=== PATIENT | male | born 1980 | race African-American/Black ===

== ENCOUNTER 2019-02-21 11:43 | Inpatient (IN) | payer OTHER ==
[2019-02-21 12:32] VITALS: BMI 30.1
--- NOTE | 2019-02-21 14:12 | HP ---
CIWA Score Nausea/Vomitin-Int. Nausea w/Dry Heave Muscle Tremors: 4-Moderate,w/Arms Extend Anxiety: 4-Mod. Anxious/Guarded Agitation: 1-Slight > Activity Paroxysmal Sweats: 1-Minimal Palms Moist Orientation: 1-Uncertain about Date Tacttile Disturbances: 0-None Auditory Disturbances: 0-None Visual Disturbances: 1-Very Mild Sensitivity Headache: 1-Very Mild CIWA-Ar Total Score: 17 - Admission Criteria [facility]ASAS Guidelines: Admission for Medically Managed Detox: Requires at least one of the followin. CIWA greater than 12 2. Seizures within the past 24 hours 3. Delirium tremens within the past 24 hours 4. Hallucinations within the past 24 hours 5. Acute intervention needed for co occurring medical disorder 6. Acute intervention needed for co occurring psychiatric disorder 7. Severe withdrawal that cannot be handled at a lower level of care (continued vomiting, continued diarrhea, abnormal vital signs) requiring intravenous medication and/or fluids 8. Patient presents the following: CIWA greater than 12 Admission Criteria Met: Admission criteria met Admission ROS [facility] - [facility] Chief Complaint: I want to stop drinking - this helps me get there Allergies/Adverse Reactions: Allergies Allergy/AdvReac Type Severity Reaction Status Date / Time No Known Allergies Allergy Verified 02/21/19 12:27 History of Present Illness: 38 yo gentleman here for alcohol detox. First time in detox here but previously in detox at [facility] about 5 years ago - states he was sober for 18 months but relapsed. He works and lives in an apartment. No seizures or black outs. Drinks most of the day - free beer in his office. States he has been unable to stop as every time he tries he just feels sick and drinks. Exam Limitations: No Limitations - Ebola screening Have you traveled outside of the country in the last 21 days: No (N) Have you had contact with anyone from an Ebola affected area: No Do you have a fever: No - Review of Systems Constitutional: Loss of Appetite, Malaise, Changes in sleep EENT: reports: Blurred Vision, Nose Congestion Respiratory: reports: No Symptoms reported Cardiac: reports: Chest Tightness GI: reports: Nausea, Poor Appetite, Indigestion, Abdominal cramping : reports: Frequency Musculoskeletal: reports: No Symptoms Reported Integumentary: reports: No Symptoms Reported Neuro: reports: Tremors Endocrine: reports: No Symptoms Reported Hematology: reports: No Symptoms Reported Psychiatric: reports: Judgement Intact, Mood/Affect Appropiate, Anxious Other Systems: Reviewed and Negative Patient History - Patient Medical History Hx Anemia: No Hx Asthma: No Hx Chronic Obstructive Pulmonary Disease (COPD): No Hx Cancer: No Hx Cardiac Disorders: No Hx Congestive Heart Failure: No Hx Hypertension: Yes (no meds - only due to drinking) Hx Hypercholesterolemia: No HX Cerebrovascular Accident: No Hx Seizures: No Hx Diabetes: No Hx Gastrointestinal Disorders: Yes (GERD) Hx Liver Disease: No Hx Genitourinary Disorders: No Hx Sexually Transmitted Disorders: No Hx Renal Disease (ESRD): No Hx Thyroid Disease: No Hx Human Immunodeficiency Virus (HIV): No Hx Hepatitis C: No Hx Depression: Yes (due to drinking) Hx Suicide Attempt: No (denies) Hx Bipolar Disorder: No Hx Schizophrenia: No - Patient Surgical History Past Surgical History: No - PPD History Previous Implant?: No Implanted On Prior [facility] Admission?: No PPD to be Administered?: Yes - Reproductive History Patient is a Female of Child Bearing Age (11 -55 yrs old): No - Smoking Cessation Smoking history: Current every day smoker Have you smoked in the past 12 months: Yes Aproximately how many cigarettes per day: 20 Initiated information on smoking cessation: Yes 'Breaking Loose' booklet given: 02/21/19 (give on floor) - Substance & Tx. History Hx Alcohol Use: Yes Hx Substance Use: No Substance Use Type: Alcohol Hx Substance Use Treatment: Yes (detox) - Substances abused Alcohol Substance route: Oral Frequency: Daily Amount used: 1/2 - 1 pint of Tequila,4 (12oz) beers Age of first use: 18 Date of last use: 02/21/19 Cocaine Substance route: Inhalation Frequency: 1-3 times last 30 days Amount used: $20 Age of first use: 25 Date of last use: 02/20/19 Admission Physical Exam [facility] - Vital Signs Vital Signs: Vital Signs - 24 hr 02/21/19 12:28 Temperature 97.2 F L Pulse Rate 101 H Respiratory 14 Rate Blood Pressure 153/96 - Physical General Appearance: Yes: Nourished, Appropriately Dressed, Moderate Distress, Tremorous, Anxious HEENTM: Yes: EOMI, Hearing grossly Normal, Normocephalic, Normal Voice, Pharynx Normal Respiratory: Yes: No Respiratory Distress, Rhonchi Neck: Yes: No masses,lesions,Nodules, Supple Breast: Yes: Breast Exam Deferred Cardiology: Yes: Regular Rhythm, Regular Rate Abdominal: Yes: Soft Genitourinary: Yes: Frequency Back: Yes: Normal Inspection Musculoskeletal: Yes: full range of Motion, Gait Steady Extremities: Yes: Normal Inspection, Normal Range of Motion, Non-Tender, Tremors Neurological: Yes: Fully Oriented, Alert, Normal Mood/Affect, Normal Response, Numbness Integumentary: Yes: Normal Color, Dry, Warm Lymphatic: Yes: Within Normal Limits - Diagnostic (1) Alcohol dependence with uncomplicated withdrawal Current Visit: Yes Status: Chronic (2) Cocaine abuse Current Visit: Yes Status: Chronic (3) Nicotine dependence Current Visit: Yes Status: Chronic Qualifiers: Nicotine product type: cigarettes Substance use status: uncomplicated Qualified Code(s): F17.210 - Nicotine dependence, cigarettes, uncomplicated (4) GERD (gastroesophageal reflux disease) Current Visit: Yes Status: Chronic Qualifiers: Esophagitis presence: esophagitis presence not specified Qualified Code(s) : K21.9 - Gastro-esophageal reflux disease without esophagitis Cleared for Admission S - Detox or Rehab [facility] Level of Care: Medically Managed Detox Regimen/Protocol: Librium Breathalyzer - Breathalyzer Breathalyzer: 0.188 Urine Drug Screen - Test Device Lot number: [id number] Expiration date: 10/31/20 - Control Is test valid?: Yes - Results Drug screen NEGATIVE: No Urine drug screen results: TAISHA-Cocaine Inpatient Rehab Admission - Rehab Decision to Admit Inpatient rehab admission?: No
[2019-02-21] MEDS ORDERED: METHOCARBAMOL 500 MG TABLET PO PRN (14:21)
[2019-02-21] MEDS ORDERED: IBUPROFEN 400 MG TABLET (FP) PO PRN (14:21)
[2019-02-21] MEDS ORDERED: ACETAMINOPHEN 325 MG TABLET (FP) PO PRN ×2 (14:21)
[2019-02-21] MEDS ORDERED: MENTHOL/PHENOL 1 EACH UD MM PRN (14:21)
[2019-02-21] MEDS ORDERED: MAG HYDROX/AL HYDROX/SIMETH 30 ML UNIT-DOSE CUP PO PRN (14:21)
[2019-02-21] MEDS ORDERED: chlordiazePOXIDE HCL 25 MG CAPSULE PO PRN (14:21)
[2019-02-21] MEDS ORDERED: BISMUTH SUBSALICYLATE 524 MG/30 ML UD PO PRN (14:21)
[2019-02-21] MEDS ORDERED: MAGNESIUM CITRATE 300 ML BOTTLE PO PRN (14:21)
[2019-02-21] MEDS ORDERED: hydrOXYzine PAMOATE 25 MG CAPSULE (FP) PO PRN (14:21)
[2019-02-21] MEDS ORDERED: chlordiazePOXIDE HCL 25 MG CAPSULE PO ONE (14:21)
[2019-02-21] MEDS ORDERED: MAGNESIUM HYDROX 2400MG/30ML ORAL SUSPENSION 30 ML CUP PO PRN (14:21)
[2019-02-21] MEDS: NICOTINE 21 MG/24 HOURS TOPICAL PATCH TD SCH (15:51)
[2019-02-21] MEDS: chlordiazePOXIDE HCL 25 MG CAPSULE PO SCH ×2 (17:35→22:13)
[2019-02-21] MEDS ORDERED: cloNIDine HCL 0.1 MG TABLET PO ONE (18:55)
[2019-02-21] MEDS: THIAMINE HCL 100 MG TABLET (FP) PO SCH (22:13)
[2019-02-21] MEDS: MELATONIN 5 MG TABLETS PO PRN (22:14)
[2019-02-22] MEDS: chlordiazePOXIDE HCL 25 MG CAPSULE PO SCH ×4 (05:47→22:20)
--- NOTE | 2019-02-22 07:00 | PN ---
[facility] Progress Note Note: ASKED TO SEE CLIENT FOR ELEVATED B/P AND NOSE BLEED. CLIENT REPORTS HE HAS BEEN BLEEDING FROM HIS NOSE FOR THE PAST 1 HOURS. DENIES SOB, DIZZINESS, C.P., VISUAL DISTURBANCES. CLIENT SEEN LYING IN BED SUPINE POSITION. HOLD TOWEL OVER HIS NOSE WITH BRIGHT RED BLOOD AND CLOTTS ON THE TOWEL, BED, FLOOR AND FEW [place] IN GARBAGE SOAKED WITH BRIGHT RED BLOOD AND CLOTTS. A/O X3 TALKING AND SWALLOWING FREQUENTLY. CLIENT WAS ASKED TO SIT UP AND HOLD PRESSURE OVER NOSE AND HOLD HEAD DOWN. ICE PACK ALSO GIVEN. Vital Signs (72 hours) 02/21/19 02/21/19 02/21/19 12:28 17:48 21:28 Temperature 97.2 F L 97.0 F L 98.5 F Pulse Rate 101 H 106 H 107 H Respiratory 14 16 16 Rate Blood Pressure 153/96 148/99 152/92 02/21/19 02/21/19 02/22/19 21:29 23:53 00:24 Temperature 98.5 F Pulse Rate 102 H 92 H Respiratory 16 18 Rate Blood Pressure 154/96 141/90 02/22/19 02/22/19 02/22/19 03:30 06:19 06:20 Temperature 98.5 F 98.5 F Pulse Rate 105 H 96 H Respiratory 18 18 18 Rate Blood Pressure 178/130 H 163/108 H 02/22/19 02/22/19 06:59 07:08 Temperature 102.6 F H 98.6 F Pulse Rate 101 H Respiratory 18 Rate Blood Pressure 171/122 H A- EPISTAXIS AND ELEVATED B/P P- TRANSFER CLIENT TO [facility] FOR EVAL . EKG ON ADMISSION SINUS TACH 102 NONSPECIFIC T WAVE ABN ABN ECG QT/QTC 368/[address] OUT [address] ELENITA CRAVEN
[2019-02-22 09:14] LABS: HEMATOCRIT 34.6 % (35.4-49); HEMOGLOBIN 11.4 GM/dL (11.7-16.9); MCH 29.2 pg (25.7-33.7); MEAN CELL VOLUME 88.6 fl (80-96); MEAN PLT VOLUME 7.3 fl (7.5-11.1); PLATELET COUNT 256 K/MM3 (134-434); RBC 3.91 M/mm3 (4.00-5.60); RDW 16.1 % (11.9-15.9); WHITE BLOOD COUNT 4.3 K/mm3 (4.0-10.0)
[2019-02-22 09:23] LABS: ALBUMIN 3.6 g/dl (3.4-5.0); BILIRUBIN,TOTAL 0.7 mg/dL (0.2-1); BLOOD UREA NITROGEN 10.2 mg/dL (7-18); POTASSIUM 3.8 mmol/L (3.5-5.1); TOT PROT 6.8 g/dl (6.4-8.2)
[2019-02-22] MEDS: PRENATAL VITAMINS W/ FOLIC ACID TABLET (FP) PO SCH (16:12)
[2019-02-22] MEDS: NICOTINE 21 MG/24 HOURS TOPICAL PATCH TD SCH (16:12)
[2019-02-22] MEDS: THIAMINE HCL 100 MG TABLET (FP) PO SCH (22:20)
[2019-02-22] MEDS: MELATONIN 5 MG TABLETS PO PRN (22:20)
[2019-02-23] MEDS: chlordiazePOXIDE HCL 25 MG CAPSULE PO SCH ×4 (05:27→22:01)
--- NOTE | 2019-02-23 07:12 | EKG ---
Test Reason : Blood Pressure : / mmHG Vent. Rate : 102 BPM Atrial Rate : 102 BPM P-R Int : 152 ms QRS Dur : 104 ms QT Int : 368 ms P-R-T Axes : 057 036 054 degrees QTc Int : 479 ms SINUS TACHYCARDIA NONSPECIFIC T WAVE ABNORMALITY ABNORMAL ECG NO PREVIOUS ECGS AVAILABLE Confirmed by JORDAN OATES MD ([id number]) on 02/23/2019 7:11:54 AM Referred By: Confirmed By:JORDAN OATES MD
[2019-02-23] MEDS: PRENATAL VITAMINS W/ FOLIC ACID TABLET (FP) PO SCH (10:41)
[2019-02-23] MEDS: NICOTINE 21 MG/24 HOURS TOPICAL PATCH TD SCH (10:42)
--- NOTE | 2019-02-23 14:08 | PN ---
[facility] CIWA - CIWA Score Nausea/Vomitin-Mild Nausea/No Vomiting Muscle Tremors: 2 Anxiety: 2 Agitation: 2 Paroxysmal Sweats: No Perspiration Orientation: 0-Oriented Tacttile Disturbances: 1-Very Mild Itch/Numbness Auditory Disturbances: 0-None Visual Disturbances: 0-None Headache: 1-Very Mild CIWA-Ar Total Score: 9 S Progress Note (SOAP) Subjective: ALERT,IRRITABLE,ANXIOUS,INTERRUPTED SLEEP,PAIN IN THE BODY Objective: 02/23/19 14:07 Vital Signs Temperature 97.1 F L 02/23/19 13:19 Pulse Rate 115 H 02/23/19 13:19 Respiratory Rate 18 02/23/19 13:19 Blood Pressure 138/99 02/23/19 13:19 O2 Sat by Pulse Oximetry (%) Laboratory Last Values WBC 4.3 K/mm3 (4.0-10.0) 02/22/19 07:40 RBC 3.91 M/mm3 (4.00-5.60) L 02/22/19 07:40 Hgb 11.4 GM/dL (11.7-16.9) L 02/22/19 07:40 Hct 34.6 % (35.4-49) L 02/22/19 07:40 MCV 88.6 fl (80-96) 02/22/19 07:40 MCH 29.2 pg (25.7-33.7) 02/22/19 07:40 MCHC 33.0 g/dl (32.0-35.9) 02/22/19 07:40 RDW 16.1 % (11.9-15.9) H 02/22/19 07:40 Plt Count 256 K/MM3 (134-434) 02/22/19 07:40 MPV 7.3 fl (7.5-11.1) L 02/22/19 07:40 Sodium 137 mmol/L (136-145) 02/22/19 07:40 Potassium 3.8 mmol/L (3.5-5.1) 02/22/19 07:40 Chloride 99 mmol/L (98-107) 02/22/19 07:40 Carbon Dioxide 28 mmol/L (21-32) 02/22/19 07:40 Anion Gap 10 MMOL/L (8-16) 02/22/19 07:40 BUN 10.2 mg/dL (7-18) 02/22/19 07:40 Creatinine 1.0 mg/dL (0.55-1.3) 02/22/19 07:40 Est GFR (CKD-EPI)AfAm 111.73 02/22/19 07:40 Est GFR (CKD-EPI)NonAf 96.40 02/22/19 07:40 Random Glucose 77 mg/dL (74-106) 02/22/19 07:40 Calcium 9.0 mg/dL (8.5-10.1) 02/22/19 07:40 Total Bilirubin 0.7 mg/dL (0.2-1) 02/22/19 07:40 AST 78 U/L (15-37) H 02/22/19 07:40 ALT 86 U/L (13-61) H 02/22/19 07:40 Alkaline Phosphatase 78 U/L (45-117) 02/22/19 07:40 Total Protein 6.8 g/dl (6.4-8.2) 02/22/19 07:40 Albumin 3.6 g/dl (3.4-5.0) 02/22/19 07:40 RPR Titer Nonreactive (NONREACTIVE) 02/22/19 07:40 Assessment: 02/23/19 14:08 WITHDRAWAL SYMPTOM Plan: CONTINUE DETOX [facility]UM [facility]IMEN
[2019-02-23] MEDS: THIAMINE HCL 100 MG TABLET (FP) PO SCH (22:01)
[2019-02-23] MEDS: MELATONIN 5 MG TABLETS PO PRN (22:01)
[2019-02-24] MEDS ORDERED: chlordiazePOXIDE HCL 10 MG CAPSULE PO PRN
[2019-02-24] MEDS: chlordiazePOXIDE HCL 10 MG CAPSULE PO SCH ×2 (05:13→10:20)
[2019-02-24] MEDS: NICOTINE 21 MG/24 HOURS TOPICAL PATCH TD SCH (10:20)
[2019-02-24] MEDS: PRENATAL VITAMINS W/ FOLIC ACID TABLET (FP) PO SCH (10:21)
[2019-02-24 13:17] VITALS: BP 124/83; PULSE 95; TEMP 97
--- NOTE | 2019-02-24 14:10 | PN ---
S CIWA - CIWA Score Nausea/Vomitin-No Nausea/No Vomiting Muscle Tremors: None Anxiety: 1-Mildly Anxious Agitation: 0-Normal Activity Paroxysmal Sweats: 1-Minimal Palms Moist Orientation: 0-Oriented Tacttile Disturbances: 1-Very Mild Itch/Numbness Auditory Disturbances: 0-None Visual Disturbances: 0-None Headache: 0-None Present CIWA-Ar Total Score: 3
--- NOTE | 2019-02-24 14:11 | DS ---
[facility] Detox Discharge Summary Admission Date: 02/21/19 Discharge Date: 02/24/19 - History Present History: Alcohol Dependence, Cocaine Dependence Additional Comments: PATIENT REPORTS THAT CURRENT WITHDRAWAL / DETOX SYMPTOMS ARE MINIMAL IN DEGREE AND THAT HE FEELS WELL OVERALL. AT PATIENTS REQUEST, HE WAS GRANTED AN EARLY DISCHARGE FROM DETOX UNIT TODAY SO THAT HE MAY RETURN TO WORK. PATIENT ADVISED TO FOLLOW-UP WITH PER DIEM CLERK AFTER DISCHARGE FROM DETOX FOR GENERAL MEDICAL ASSESSMENT AND FOR INTERMITTENT ELEVATED BLOOD PRESSURE READINGS NOTED WHILE ADMITTED FOR DETOX (PATIENT REPORTS HISTORY OF HYPERTENSION; HOWEVER, HE DENIES HISTORY OF PRESCRIBED MEDICATION TO TREAT HYPERTENSION). PATIENT ALSO ADVISED TO CONSIDER LOCAL 12-STEP / NA / AA OUTPATIENT SUPPORT GROUP PROGRAMS FOR AFTERCARE. PATIENT VERBALIZED UNDERSTANDING OF ALL RECOMMENDATIONS PRESENTED TO HIM PRIOR TO DISCHARGE FROM DETOX UNIT. PATIENT LEFT DETOX UNIT IN STABLE MEDICAL CONDITION. Pertinent Past History: HTN, G.E.R.D., Nosebleed, Anemia, Elevated ALT Level, Elevated AST Level, Depression, Nicotine Dependence. - Physical Exam Results Vital Signs: Vital Signs Temperature 97 F L 02/24/19 13:17 Pulse Rate 95 H 02/24/19 13:17 Respiratory Rate 18 02/24/19 13:17 Blood Pressure 124/83 02/24/19 13:17 O2 Sat by Pulse Oximetry (%) Pertinent Admission Physical Exam Findings: WITHDRAWAL SYMPTOMS. Laboratory Tests 02/22/19 02/22/19 02/22/19 07:40 07:40 07:40 WBC 4.3 RBC 3.91 L Hgb 11.4 L Hct 34.6 L MCV 88.6 MCH 29.2 MCHC 33.0 RDW 16.1 H Plt Count 256 MPV 7.3 L Sodium 137 Potassium 3.8 Chloride 99 Carbon Dioxide 28 Anion Gap 10 BUN 10.2 Creatinine 1.0 Est GFR (CKD-EPI)AfAm 111.73 Est GFR (CKD-EPI)NonAf 96.40 Random Glucose 77 Calcium 9.0 Total Bilirubin 0.7 AST 78 H ALT 86 H Alkaline Phosphatase 78 Total Protein 6.8 Albumin 3.6 RPR Titer Nonreactive LABS NOTED. - Treatment Patient has Accepted a Rehab Referral to: PT. ADVISED TO CONSIDER LOCAL 12-STEP/ NA/AA OUTPATIENT SUPPORT GROUP. - Medication Discharge Medications: Ambulatory Orders NK [No Known Home Medication] 02/21/19 - Diagnosis (1) Alcohol dependence with uncomplicated withdrawal Current Visit: Yes Status: Acute (2) Cocaine abuse Current Visit: Yes Status: Chronic (3) GERD (gastroesophageal reflux disease) Current Visit: Yes Status: Chronic Qualifiers: Esophagitis presence: esophagitis presence not specified Qualified Code(s) : K21.9 - Gastro-esophageal reflux disease without esophagitis (4) Nicotine dependence Current Visit: Yes Status: Chronic Qualifiers: Nicotine product type: cigarettes Substance use status: uncomplicated Qualified Code(s): F17.210 - Nicotine dependence, cigarettes, uncomplicated (5) Nosebleed Current Visit: Yes Status: Acute - AMA Did Patient Leave Against Medical Advice: No [facility] CIWA - CIWA Score Nausea/Vomitin-No Nausea/No Vomiting Muscle Tremors: None Anxiety: 1-Mildly Anxious Agitation: 1-Slight > Activity Paroxysmal Sweats: 2 Orientation: 0-Oriented Tacttile Disturbances: 1-Very Mild Itch/Numbness Auditory Disturbances: 0-None Visual Disturbances: 0-None Headache: 0-None Present CIWA-Ar Total Score: 5
[2019-02-25] MEDS ORDERED: chlordiazePOXIDE HCL 10 MG CAPSULE PO SCH (05:00)
[2019-02-26] MEDS ORDERED: chlordiazePOXIDE HCL 10 MG CAPSULE PO ONE (05:00)
== END 2019-02-24 14:06 | disposition home or self-care (01) | DRG 897 ==
LOC: YASAS 11:43 → EDBD 11:43 → Y3N 15:18
PROVIDERS: ADMIT Surgery; ATTEND Surgery
PROC: HZ2ZZZZ Detoxification Services for Substance Abuse Treatment (ICD-10-PCS; principal; 2019-02-21)
DX: F10.230 Alcohol dependence with withdrawal, uncomplicated (principal); F14.10 Cocaine abuse, uncomplicated; F17.210 Nicotine dependence, cigarettes, uncomplicated; K21.9 Gastro-esophageal reflux disease without esophagitis; R03.0 Elevated blood-pressure reading, without diagnosis of hypertension; R00.1 Bradycardia, unspecified; R94.31 Abnormal electrocardiogram [ECG] [EKG]; R04.0 Epistaxis
CPT/HCPCS: 36415; 80053; 85027; 86593; 93005; 93010; J0735

== ENCOUNTER 2019-02-22 07:52 | Emergency (ER) | payer OTHER ==
[2019-02-22 07:58] VITALS: BMI 29.8
--- NOTE | 2019-02-22 09:16 | PDOC ---
History of Present Illness - General Chief Complaint: Nasal Bleeding Stated Complaint: NOSEBLEED Time Seen by Provider: 02/22/19 08:30 Past History - Past Medical History Allergies/Adverse Reactions: Allergies Allergy/AdvReac Type Severity Reaction Status Date / Time No Known Allergies Allergy Verified 02/22/19 08:15 Home Medications: Ambulatory Orders NK [No Known Home Medication] 02/21/19 Anemia: No Asthma: No Cancer: No Cardiac Disorders: No CVA: No COPD: No CHF: No Diabetes: No GI Disorders: No Disorders: No HTN: No Hypercholesterolemia: No Kidney Stones: No Liver Disease: No Seizures: No Thyroid Disease: No - Reproductive History Testicular Surgery: No - Suicide/Smoking/Psychosocial Hx Smoking History: Current every day smoker Have you smoked in the past 12 months: Yes Number of Cigarettes Smoked Daily: 15 Information on smoking cessation initiated: No 'Breaking Loose' booklet given: 02/21/19 (give on floor) Hx Alcohol Use: Yes Drug/Substance Use Hx: Yes Substance Use Type: Alcohol Hx Substance Use Treatment: Yes (detox) Review of Systems - Review of Systems Able to Perform ROS?: Yes Comments:: 02/22/19 10:37 ROS: GENERAL/CONSTITUTIONAL: No fever or chills. No weakness. HEAD, EYES, EARS, NOSE AND THROAT: Nosebleed. No change in vision. No ear pain or discharge. No sore throat. CARDIOVASCULAR: No chest pain or shortness of breath RESPIRATORY: No cough, wheezing, or hemoptysis. GASTROINTESTINAL: No nausea, vomiting, diarrhea or constipation. GENITOURINARY: No dysuria, frequency, or change in urination. MUSCULOSKELETAL: No joint or muscle swelling or pain. No neck or back pain. SKIN: No rash NEUROLOGIC: No headache, vertigo, loss of consciousness, or change in strength/ sensation. ENDOCRINE: No increased thirst. No abnormal weight change HEMATOLOGIC/LYMPHATIC: No anemia, easy bleeding, or history of blood clots. ALLERGIC/IMMUNOLOGIC: No hives or skin allergy. *Physical Exam - Vital Signs Last Vital Signs Temp Pulse Resp BP Pulse Ox 99.6 F 104 H 18 154/109 H 02/22/19 07:54 02/22/19 07:54 02/22/19 07:54 02/22/19 08:15 - Physical Exam Comments: 02/22/19 10:38 PE: GENERAL: Awake, alert, and fully oriented, in no acute distress, holding gauze against the R nostril HEAD: No signs of trauma, normocephalic, atraumatic EYES: PERRLA, EOMI, sclera anicteric, conjunctiva clear ENT: Blood dripping from R nare. Auricles normal inspection, hearing grossly normal, nares patent, oropharynx clear without exudates, dried blood in back of throat. Moist mucosa NECK: Normal ROM, supple, no lymphadenopathy, JVD, or masses LUNGS: No distress, speaks full sentences, clear to auscultation bilaterally HEART: Regular rate and rhythm, normal S1 and S2, no murmurs, rubs or gallops, peripheral pulses normal and equal bilaterally. ABDOMEN: Soft, nontender, normoactive bowel sounds. No guarding, no rebound. No masses EXTREMITIES : Normal inspection, Normal range of motion, no edema. No clubbing or cyanosis NEUROLOGICAL: Cranial nerves II through XII grossly intact. Normal speech, normal gait, no focal sensorimotor deficits SKIN: Warm, Dry, normal turgor, no rashes or lesions noted ED Treatment Course - LABORATORY CBC & Chemistry Diagram: 02/22/19 18:05 02/22/19 18:05 Medical Decision Making - Medical Decision Making 02/22/19 10:15 38M p/w 2.5 hours ongoing nosebleed after first nosebleed one week ago, likely anterior nosebleed. Nosebleed stopped spontaneously before eval. Plan for observation for 1 hour then discharge back to [facility], where he is admitted for EtOH detox. Plan: Observation for 1 hour Dispo: Likely discharge 02/22/19 10:34 Repeat HR - 89 Repeat BP - 142/109 --- While preparing for discharge, Mr. Hardwick's nare began to bleed briskly again. Plan for TXA packing for 10 min, re-assess. --- On 02/22/19 16:26 Repeat HR - 94, plan for discharge back to [facility]. 02/22/19 19:08 Repeat HR - 102, BP - 140/100 *DC/Admit/Observation/Transfer Diagnosis at time of Disposition: Nosebleed - Discharge Dispostion Disposition: HOME Condition at time of disposition: Stable Decision to Admit order: No - Referrals Referrals: Gustavo Boles MD [Staff Physician] - - Patient Instructions Printed Discharge Instructions: DI for Nosebleed Additional Instructions: You were seen in the Emergency Department after a nosebleed. The nosebleed stopped with pressure in the nose, and with a spray to help stop the bleeding. The bleeding continued, and we placed a device in the nose to stop the bleeding , called the nasal rocket. The nasal rocket should stay in place for the next 24 -72 hours. It is important that you follow up with an Ears, Nose, and Throat doctor within the next three days. We observed you in the emergency department to make sure that the bleed did not start again. Please follow up with your primary care doctor as soon as possible, in the next seven days. Please return to the emergency department if you develop lightheadedness, weakness, headache, confusion, weakness. - Post Discharge Activity
[2019-02-22] MEDS ORDERED: OXYMETAZOLINE 0.05% NASAL SOLUTION 15 ML BOTTLE NS ONE (09:31)
--- NOTE | 2019-02-22 10:04 | PDOC ---
Attending Attestation - Resident Resident Name: Gurpreet Tavares - ED Attending Attestation I have performed the following: I have examined & evaluated the patient, The case was reviewed & discussed with the resident, I agree w/resident's findings & plan, Exceptions are as noted - HPI HPI: 02/22/19 10:07 38 M with no PMH presents to ED with epistaxis x 1 week. Pt reports intermittent nosebleeds. Denies any trauma to his nose. Denies picking his nose. Pt states it usually resolves spontaneously, but today it has been persistent. Pt denies any lightheadedness/dizziness. Denies CP/SOB. Pt is currently admitted to [facility] for ETOH detox. Denies any cocaine or snorting any other drugs. - Physicial Exam PE: 02/22/19 10:10 "GENERAL: Awake, alert, and fully oriented, in no acute distress. HEAD: No signs of trauma EYES: PERRLA, EOMI, sclera anicteric, conjunctiva clear ENT: Auricles normal inspection, hearing grossly normal, nares patent, oropharynx clear without exudates. Moist mucosa NECK: Nontender, no stepoffs, Normal ROM, supple, no lymphadenopathy, JVD, or masses LUNGS: Breath sounds equal, clear to auscultation bilaterally. No wheezes, and no crackles HEART: Regular rate and rhythm, normal S1 and S2, no murmurs, rubs or gallops ABDOMEN: Soft, nontender, normoactive bowel sounds. No guarding, no rebound. No masses EXTREMITIES: Normal range of motion, no edema. No clubbing or cyanosis. No cords, erythema, or tenderness NEUROLOGICAL: Cranial nerves II through XII intact. 5/5 strength and sensation in all extremities, Normal speech, normal gait, normal cerebellar function SKIN: Warm, Dry, normal turgor, no rashes or lesions noted. - Medical Decision Making 02/22/19 10:10 38 M with intermittent epistaxis, now resolved. Pt mildly tachycardic in ED. - Afrin nasal spray - PO hydration 02/22/19 13:02 Pt with recurrent epistaxis in ED, bleeding from R nare Afrin spray administered with persistent bleeding TXA-soaked gauze inserted into R nare, removed after 10 min with persistent bleeding Will insert rhino rocket 09/22/19 13:56 Rhino rocket inserted with successful hemostasis Pt is well appearing, with normal vitals. Clinically stable for DC at this time. I discussed the physical exam findings, ancillary test results and final diagnoses with the patient. I answered all of the patient's questions. The patient was satisfied with the care received and felt comfortable with the discharge plan and treatment plan. The patient agrees to follow up with the primary care physician within 24-72 hours.
[2019-02-22] MEDS ORDERED: TRANEXAMIC ACID 1000 MG/10 ML VIAL IVPUSH ONE (11:53)
[2019-02-22] MEDS ORDERED: TRANEXAMIC ACID 1000 MG/10 ML VIAL ONE (11:57)
[2019-02-22] MEDS ORDERED: ACETAMINOPHEN 500 MG TABLET (FP) PO ONE (14:24)
[2019-02-22 14:40] VITALS: BP 138/113; PULSE 110; TEMP 97.2
[2019-02-22] MEDS ORDERED: ACETAMINOPHEN 500 MG TABLET (FP) ONE (15:28)
[2019-02-22] MEDS ORDERED: chlordiazePOXIDE HCL 25 MG CAPSULE PO ONE (17:07)
[2019-02-22] MEDS ORDERED: SODIUM CHLORIDE 0.9% 500 ML INFUS.BAG IV ONE (17:08)
[2019-02-22] MEDS ORDERED: chlordiazePOXIDE HCL 25 MG CAPSULE ONE ×2 (18:18→18:31)
[2019-02-22 18:23] LABS: BASO % 1.2 % (0-2.0); EOS % 2.8 % (0-4.5); HEMATOCRIT 32.5 % (35.4-49); HEMOGLOBIN 10.9 GM/dL (11.7-16.9); LYMPH % 10.8 % (8-40); MCHC 33.5 g/dl (32.0-35.9); MEAN CELL VOLUME 86.7 fl (80-96); MEAN PLT VOLUME 6.9 fl (7.5-11.1); MONO % 16.8 % (3.8-10.2); NEUT % 68.4 % (42.8-82.8); PLATELET COUNT 250 K/MM3 (134-434); RBC 3.75 M/mm3 (4.00-5.60); RDW 15.2 % (11.9-15.9); WHITE BLOOD COUNT 5.6 K/mm3 (4.0-10.0)
[2019-02-22 18:48] LABS: ALBUMIN 3.5 g/dl (3.4-5.0); BILIRUBIN,TOTAL 0.6 mg/dL (0.2-1); BLOOD UREA NITROGEN 20.9 mg/dL (7-18); CALCIUM 9.4 mg/dL (8.5-10.1); TOT PROT 7.1 g/dl (6.4-8.2)
--- NOTE | 2019-02-23 10:32 | EKG ---
Test Reason : Blood Pressure : / mmHG Vent. Rate : 096 BPM Atrial Rate : 096 BPM P-R Int : 130 ms QRS Dur : 092 ms QT Int : 388 ms P-R-T Axes : 047 021 041 degrees QTc Int : 490 ms NORMAL SINUS RHYTHM NONSPECIFIC T WAVE ABNORMALITY PROLONGED QT ABNORMAL ECG WHEN COMPARED WITH ECG OF 21-FEB-2019 17:58, NO SIGNIFICANT CHANGE WAS FOUND Confirmed by JORDAN OATES MD ([id number]) on 02/23/2019 10:32:21 AM Referred By: Confirmed By:JORDAN OATES MD
== END 2019-02-22 20:34 | disposition home or self-care (01) ==
LOC: JER 07:52
PROC: 2Y41X5Z Packing of Nasal Region using Packing Material (ICD-10-PCS; principal; 2019-02-22)
PROC: 3E033GC Introduction of Other Therapeutic Substance into Peripheral Vein, Percutaneous Approach (ICD-10-PCS; 2019-02-22)
DX: R04.0 Epistaxis (principal)
CPT/HCPCS: 36415; 80053; 85025; 93005; 93010; 99283-25

== ENCOUNTER 2020-07-28 17:04 | Inpatient (IN) | payer OTHER ==
[2020-07-28] MEDS ORDERED: BISMUTH SUBSALICYLATE 524 MG/30 ML UD PO PRN (21:50)
[2020-07-28] MEDS ORDERED: IBUPROFEN 400 MG TABLET (FP) PO PRN (21:50)
[2020-07-28] MEDS ORDERED: P-EPHED 60MG/TRIPROLIDI 2.5MG TABLET PO PRN (21:50)
[2020-07-28] MEDS ORDERED: MAGNESIUM CITRATE 300 ML BOTTLE PO PRN (21:50)
[2020-07-28] MEDS ORDERED: MAGNESIUM HYDROX 2400MG/30ML ORAL SUSPENSION 30 ML CUP PO PRN (21:50)
[2020-07-28] MEDS ORDERED: MENTHOL/PHENOL 1 EACH UD MM PRN (21:50)
[2020-07-28] MEDS ORDERED: METHOCARBAMOL 500 MG TABLET PO PRN (21:50)
[2020-07-28] MEDS ORDERED: MAG HYDROX/AL HYDROX/SIMETH 30 ML UNIT-DOSE CUP PO PRN (21:50)
[2020-07-28] MEDS ORDERED: ACETAMINOPHEN 325 MG TABLET (FP) PO PRN ×2 (21:50)
[2020-07-28] MEDS ORDERED: DICYCLOMINE HCL 10 MG CAPSULE PO PRN (21:50)
[2020-07-28] MEDS ORDERED: guaiFENesin 200 MG/10 ML 10 ML UNIT-DOSE CUPS PO PRN (21:50)
[2020-07-28] MEDS ORDERED: chlordiazePOXIDE HCL 25 MG CAPSULE PO PRN (21:50)
[2020-07-28] MEDS ORDERED: ONDANSETRON *ODT* 4 MG TABLET SL PRN (21:50)
[2020-07-28] MEDS ORDERED: NICOTINE POLACRILEX 2 MG GUM BUC PRN (21:50)
[2020-07-28 22:33] VITALS: BMI 30.4
[2020-07-28] MEDS: MELATONIN 5 MG TABLETS PO SCH (23:28)
[2020-07-28] MEDS: THIAMINE HCL 100 MG TABLET (FP) PO SCH (23:28)
[2020-07-28] MEDS: hydrOXYzine PAMOATE 25 MG CAPSULE (FP) PO PRN (23:29)
[2020-07-28] MEDS: chlordiazePOXIDE HCL 25 MG CAPSULE PO SCH (23:29)
[2020-07-29] MEDS: cloNIDine HCL 0.1 MG TABLET PO PRN ×2 (01:37→22:28)
[2020-07-29] MEDS: chlordiazePOXIDE HCL 25 MG CAPSULE PO SCH ×4 (05:33→22:27)
[2020-07-29] MEDS: PRENATAL VITAMINS W/ FOLIC ACID TABLET (FP) PO SCH (10:20)
[2020-07-29] MEDS: NICOTINE 21 MG/24 HOURS TOPICAL PATCH TD SCH (10:20)
[2020-07-29 11:49] LABS: POTASSIUM 3.5 mmol/L (3.5-5.1)
[2020-07-29 11:52] LABS: CALCIUM 9.1 mg/dL (8.5-10.1)
[2020-07-29 11:53] LABS: ALBUMIN 3.8 g/dl (3.4-5.0); BLOOD UREA NITROGEN 12.4 mg/dL (7-18)
[2020-07-29 11:56] LABS: CREATININE 1.2 mg/dL (0.55-1.3)
[2020-07-29 11:57] LABS: BILIRUBIN,TOTAL 1.5 mg/dL (0.2-1); HEMATOCRIT 36.3 % (35.4-49); HEMOGLOBIN 12.3 GM/dL (11.7-16.9); MCH 30.7 pg (25.7-33.7); MCHC 33.8 g/dl (32.0-35.9); MEAN CELL VOLUME 90.9 fl (80-96); PLATELET COUNT 177 K/MM3 (134-434); RBC 3.99 M/mm3 (4.00-5.60); RDW 15.4 % (11.9-15.9); TOT PROT 7.1 g/dl (6.4-8.2); WHITE BLOOD COUNT 5.6 K/mm3 (4.0-10.0)
[2020-07-29 14:29] LABS: EPI CELLS 14 /uL (0-25.1); HYALINE CASTS 6 /uL (0-3.1); URINE APPEARANCE CLEAR; URINE BACTERIA 227 /uL (0-1359); URINE BILIRUBIN 1+ (NEGATIVE); URINE COLOR DK YELLOW; URINE GLUCOSE (UA) NEGATIVE (NEGATIVE); URINE KETONE NEGATIVE (NEGATIVE); URINE LEUK ESTERASE NEGATIVE (NEGATIVE); URINE NITRITE NEGATIVE (NEGATIVE); URINE PROTEIN 3+ (NEGATIVE); URINE RBC 20 /uL (0-23.9); URINE WBC 21 /uL (0-25.8)
[2020-07-29] MEDS: THIAMINE HCL 100 MG TABLET (FP) PO SCH (22:26)
[2020-07-29] MEDS: MELATONIN 5 MG TABLETS PO SCH (22:27)
[2020-07-30] MEDS: chlordiazePOXIDE HCL 25 MG CAPSULE PO SCH ×4 (05:21→22:51)
[2020-07-30] MEDS: PRENATAL VITAMINS W/ FOLIC ACID TABLET (FP) PO SCH (10:16)
[2020-07-30] MEDS: NICOTINE 21 MG/24 HOURS TOPICAL PATCH TD SCH (10:16)
[2020-07-30 11:52] LABS: POTASSIUM 3.5 mmol/L (3.5-5.1)
[2020-07-30 12:00] LABS: ALBUMIN 3.6 g/dl (3.4-5.0); BLOOD UREA NITROGEN 12.7 mg/dL (7-18); CALCIUM 9.2 mg/dL (8.5-10.1)
[2020-07-30 12:05] LABS: TOT PROT 6.6 g/dl (6.4-8.2)
[2020-07-30] MEDS: cloNIDine HCL 0.1 MG TABLET PO PRN (12:17)
[2020-07-30] MEDS: THIAMINE HCL 100 MG TABLET (FP) PO SCH (22:52)
[2020-07-30] MEDS: MELATONIN 5 MG TABLETS PO SCH (22:52)
[2020-07-31] MEDS ORDERED: chlordiazePOXIDE HCL 10 MG CAPSULE PO PRN
[2020-07-31 02:24] LABS: EPI CELLS 3 /uL (0-25.1); HYALINE CASTS 0 /uL (0-3.1); PH,URINE 6.5 (5.0-8.0); URINE APPEARANCE CLEAR; URINE BACTERIA 26 /uL (0-1359); URINE BILIRUBIN NEGATIVE (NEGATIVE); URINE COLOR YELLOW; URINE GLUCOSE (UA) NEGATIVE (NEGATIVE); URINE KETONE NEGATIVE (NEGATIVE); URINE LEUK ESTERASE NEGATIVE (NEGATIVE); URINE NITRITE NEGATIVE (NEGATIVE); URINE PROTEIN 1+ (NEGATIVE); URINE RBC 9 /uL (0-23.9); URINE WBC 1 /uL (0-25.8)
[2020-07-31] MEDS: chlordiazePOXIDE HCL 10 MG CAPSULE PO SCH ×4 (05:33→22:06)
[2020-07-31] MEDS: NICOTINE 21 MG/24 HOURS TOPICAL PATCH TD SCH (10:10)
[2020-07-31] MEDS: PRENATAL VITAMINS W/ FOLIC ACID TABLET (FP) PO SCH (10:10)
[2020-07-31] MEDS: THIAMINE HCL 100 MG TABLET (FP) PO SCH (22:06)
[2020-07-31] MEDS: MELATONIN 5 MG TABLETS PO SCH (22:06)
[2020-08-01] MEDS: chlordiazePOXIDE HCL 10 MG CAPSULE PO SCH ×2 (05:11→18:05)
[2020-08-01] MEDS: cloNIDine HCL 0.1 MG TABLET PO PRN (07:54)
[2020-08-01] MEDS: PRENATAL VITAMINS W/ FOLIC ACID TABLET (FP) PO SCH (10:12)
[2020-08-01] MEDS: NICOTINE 21 MG/24 HOURS TOPICAL PATCH TD SCH (10:12)
[2020-08-01] MEDS: hydrOXYzine PAMOATE 25 MG CAPSULE (FP) PO PRN ×2 (18:06→22:09)
[2020-08-01] MEDS: MELATONIN 5 MG TABLETS PO SCH (22:09)
[2020-08-01] MEDS: THIAMINE HCL 100 MG TABLET (FP) PO SCH (22:09)
[2020-08-02] MEDS ORDERED: chlordiazePOXIDE HCL 10 MG CAPSULE PO ONE (05:00)
[2020-08-02] MEDS: hydrOXYzine PAMOATE 25 MG CAPSULE (FP) PO PRN (05:33)
[2020-08-02 09:44] VITALS: BP 145/103; PULSE 100; TEMP 97.5
== END 2020-08-02 10:06 | disposition home or self-care (01) | DRG 774 ==
LOC: YASAS 17:04 → Y6N 22:48
PROVIDERS: ADMIT Allergy & Immunology; ATTEND Allergy & Immunology
PROC: HZ2ZZZZ Detoxification Services for Substance Abuse Treatment (ICD-10-PCS; principal; 2020-07-28)
DX: F10.230 Alcohol dependence with withdrawal, uncomplicated (principal); F14.10 Cocaine abuse, uncomplicated; F17.210 Nicotine dependence, cigarettes, uncomplicated; F34.1 Dysthymic disorder; F90.9 Attention-deficit hyperactivity disorder, unspecified type; G40.509 Epileptic seizures related to external causes, not intractable, without status epilepticus; R31.9 Hematuria, unspecified; R80.9 Proteinuria, unspecified; R74.01 Elevation of levels of liver transaminase levels; R94.31 Abnormal electrocardiogram [ECG] [EKG]; R63.8 Other symptoms and signs concerning food and fluid intake; Z91.81 History of falling
CPT/HCPCS: 36415; 80053; 81003; 85027; 86780; 93005; 93010; C9803; J0735; U0003